=== PATIENT | male | born 1990 | race Caucasian/White ===

== ENCOUNTER 2017-07-02 10:39 | Emergency (ER) | payer OTHER ==
[~2017-07-02] VITALS: Ht 170.2 cm; Wt 115.7 kg
[2017-07-02 11:20] VITALS: BP 118/67
--- NOTE | 2017-07-02 11:23 | NUR ---
PT AMBULATES BACK TO THE LOBBY
--- NOTE | 2017-07-02 16:15 | NUR ---
Pt ambulated to RM 10 with steady gait
--- NOTE | 2017-07-02 16:30 | NUR ---
27 M BIB SIGNIFICANT OTHER WITH C/O 10/10 "PRESSURE" CONSTANT LEFT LOWER ABDOMINAL PAIN, LT TESTICULAR PAIN X 2 DAYS WITH N/V X 1 TODAY; PT DENIES ANY URINARY COMPLAINTS, PENILE DISCHARGE; PT IS AOX4, RR ARE EVEN AND UNLABORED. ER MD AWARE OF PT STATUS. PT POSITIONED TO COMFORT, BED DOWN. ALL NEEDS MET AT THIS TIME.
--- NOTE | 2017-07-02 17:11 | NUR ---
ER MD RAY BY BEDSIDE EXAMINING PT
[2017-07-02] MEDS ORDERED: cefTRIAXone 250 MG VIAL ONE ×2 (17:35→17:43)
[2017-07-02] MEDS ORDERED: LIDOCAINE 2% 1000 MG/50 ML VIAL INJ ONE (17:44)
[2017-07-02] MEDS: AZITHROMYCIN 250 MG TAB PO ONE (17:44)
[2017-07-02] MEDS: cefTRIAXone 250 MG in LIDOCAINE 1% ***ER ONLY *** 0.9 ML IM ONE (17:44)
[2017-07-02] MEDS: KETOROLAC 60 MG/2 ML VIAL IM ONE (17:44)
--- NOTE | 2017-07-02 18:30 | NUR ---
INFORMED ER MD RAY VS; NEW ORDERS; AWAITING IVF TO BE FINISHED FOR D/C
[2017-07-02] MEDS: NACL 0.9% 1,000 ML IV ONE (18:42)
[2017-07-02 19:15] VITALS: BP 112/70
--- NOTE | 2017-07-02 19:19 | NUR ---
Patient discharged with v/s stable. Written and verbal after care instructions given and explained. Patient alert, oriented and verbalized understanding of instructions. Ambulatory with steady gait. All questions addressed prior to discharge. ID band removed. Patient advised to follow up with PMD. Rx of [place] given. Patient educated on indication of medication including possible reaction and side effects. Opportunity to ask questions provided and answered.
[2017-07-05 06:12] LABS: CHLAMYDIA TRACHOMATIS AMP DNA Negative (Negative)
== END 2017-07-02 19:19 | disposition home or self-care (01) ==
LOC: MED 10:39
DX: N45.3 Epididymo-orchitis (principal)
CPT/HCPCS: 36415; 76870; 81002; 87086; 87186; 87491; 96372; 99285; J0696; J1885; J2001; J7030; Q0092